=== PATIENT | male | born 1980 | race Caucasian/White ===

== ENCOUNTER 2018-11-23 08:40 | Emergency (ER) | payer OTHER ==
[~2018-11-23] VITALS: Ht 167.6 cm; Wt 72.6 kg
[2018-11-23 08:50] VITALS: BP_SYST 123
[2018-11-23 10:55] VITALS: BP_SYST 121
== END 2018-11-23 10:55 | disposition home or self-care (01) ==
LOC: SED 08:40
DX: M25.551 Pain in right hip (principal)
CPT/HCPCS: 72192-TC; 73502; 99284